=== PATIENT | female | born 1975 | race Caucasian/White ===

== ENCOUNTER 2017-10-16 11:41 | Emergency (ER) | payer OTHER, MEDICAID, SELFPAY ==
[2017-10-16 11:45] VITALS: BP 138/80; PULSE 102; RESP 20; TEMP 36.8; O2SAT 100
[2017-10-16 12:18] LABS: Bacteria Urine None Seen; WBC Urine None Seen (0-5/HPF)
--- NOTE | 2017-10-16 12:20 | ED.FEMALEGU ---
HPI - Female Genitourinary <HINA Mistry - Last Filed: 10/16/17 19:43> General Chief complaint: Vaginal Bleeding Stated complaint: 'PAINFUL PERIOD 11TH DAY OF BLEEDING' Time Seen by Provider: 10/16/17 12:20 History of Present Illness HPI Narrative: 41-year-old female with history of painful menses and chronic pain here for complaint of painful menses that has lasted for the last 11 days. She has pain into her pelvic region described as crampy. She states that she is using a pad approximately every 2-3 hours. She states that she has been treated for painful menses in the past by avionics manager. She denies any relievers or stressors of the pain. Positive p.o. intake. She states her last menstrual period was in the middle of September. She denies any other concerns or complaints. MD Complaint: vaginal bleeding and pelvic pain Related Data Home Medications Medication Instructions Recorded Confirmed lorazepam 1 tab PO QID PRN 10/16/17 10/16/17 quetiapine 100 mg PO BID 10/16/17 10/16/17 sumatriptan succinate [Imitrex] 50 mg PO PRN PRN 10/16/17 10/16/17 venlafaxine 2 cap PO DAILY 10/16/17 10/16/17 Previous Rx's Medication Instructions Recorded amitriptyline 25 mg PO HS #30 tab 02/24/17 Allergies Allergy/AdvReac Type Severity Reaction Status Date / Time No Known Drug Allergies Allergy Verified 10/16/17 11:49 Review of Systems <HINA Mistry - Last Filed: 10/16/17 19:43> Constitutional Denies chills, Denies fever(s), Denies lethargy and Denies weakness Eyes Denies change in vision, Denies eye discharge, Denies irritation and Denies loss of vision ENT Ears, Nose, Mouth, and Throat: Denies change in voice, Denies neck pain and Denies sore throat Cardiovascular Denies chest pain, Denies irregular heart rhythm, Denies lightheadedness, Denies palpitations, Denies dyspnea, Denies dyspnea on exertion and Denies orthopnea Respiratory Denies cough, Denies dyspnea, Denies dyspnea on exertion and Denies wheezing Gastrointestinal Gastrointestinal: Denies abdominal pain, Denies change in bowel habits, Denies diarrhea, Denies nausea and Denies vomiting Genitourinary Reports dysmenorrhea Musculoskeletal Denies neck pain Integumentary/Breasts Denies pruritus, Denies erythema, Denies rash and Denies wounds Neurologic Denies confusion, Denies loss of vision and Denies weakness Psychiatric Denies anxiety, Denies confusion, Denies depression, Denies homicidal ideation and Denies suicidal ideation Endocrine Denies palpitations Allergic/Immunologic Denies wheezing Exam <HINA Mistry - Last Filed: 10/16/17 19:43> Initial Vital Signs Initial Vital Signs: Vital Signs Temperature 98.3 F 10/16/17 11:45 Pulse Rate 102 H 10/16/17 11:45 Respiratory Rate 20 10/16/17 11:45 Blood Pressure 138/80 H 10/16/17 11:45 Pulse Oximetry 100 10/16/17 11:45 Const General: cooperative and well developed Nutritional Appearance: well nourished Orientation: alert, awake, oriented x3 and not confused HENMT Mouth: oral mucosae normal and moist mucous membranes Eyes Conjunctivae: conjunctivae normal Sclera: sclerae normal Pupils: PERRL Resp Effort & Inspection: normal respiratory effort, able to speak in complete sentences, no respiratory distress and no use of accessory muscles Auscultation: clear to auscultation bilaterally, no rales, no rhonchi and no wheezes Cardio Rate: regular rate Rhythm: regular rhythm Heart Sounds: no click, no gallops, no murmurs and no rubs GI Inspection: non-distended Palpation: soft, no hepatosplenomegaly, No guarding, No pulsatile mass and No tender Auscultation: normal bowel sounds General: No CVA tenderness External Female Exam: external appearance normal Skin General: no rashes or lesions noted, No jaundice and No petechiae <Rhiannon Valencia DO - Last Filed: 10/17/17 08:26> Initial Vital Signs Initial Vital Signs: Vital Signs Temperature 98.3 F 10/16/17 11:45 Pulse Rate 102 H 10/16/17 11:45 Respiratory Rate 20 10/16/17 11:45 Blood Pressure 138/80 H 10/16/17 11:45 Pulse Oximetry 100 10/16/17 11:45 Course <HINA Mistry - Last Filed: 10/16/17 19:43> Orders Ordered: Discontinued Medications Hydromorphone HCl (Dilaudid) 0.5 mg IV NOW ONE Stop: 10/16/17 13:05 Last Admin: 10/16/17 13:18 Dose: 0.5 mg Sodium Chloride (Normal Saline 0.9%) 1,000 mls @ 1,000 mls/hr IV BOLUS ONE Stop: 10/16/17 13:34 Last Infusion: 10/16/17 14:32 Dose: 0 mls/hr Admin: 10/16/17 13:18 Dose: 1,000 mls/hr Vital Signs - 8 hr 10/16/17 11:45 10/16/17 13:28 10/16/17 14:00 Temperature 98.3 F Pulse Rate 102 H 94 H 94 H Respiratory Rate 20 20 Blood Pressure 138/80 H Blood Pressure [Left Arm] 135/88 H 130/70 H Pulse Oximetry 100 100 100 <Rhiannon Valencia DO - Last Filed: 10/17/17 08:26> Orders Ordered: Discontinued Medications Hydromorphone HCl (Dilaudid) 0.5 mg IV NOW ONE Stop: 10/16/17 13:05 Last Admin: 10/16/17 13:18 Dose: 0.5 mg Sodium Chloride (Normal Saline 0.9%) 1,000 mls @ 1,000 mls/hr IV BOLUS ONE Stop: 10/16/17 13:34 Last Infusion: 10/16/17 14:32 Dose: 0 mls/hr Admin: 10/16/17 13:18 Dose: 1,000 mls/hr Vital Signs - 8 hr 10/16/17 11:45 10/16/17 13:28 10/16/17 14:00 Temperature 98.3 F Pulse Rate 102 H 94 H 94 H Respiratory Rate 20 20 Blood Pressure 138/80 H Blood Pressure [Left Arm] 135/88 H 130/70 H Pulse Oximetry 100 100 100 MDM - Female Genitourinary <HINA Mistry - Last Filed: 10/16/17 19:43> Lab Data Result diagrams: 10/16/17 12:51 10/16/17 12:51 Lab Results 10/16/17 10/16/17 10/16/17 Range/Units 12:04 12:51 12:51 WBC 6.7 (4.5-11.0) X10^3/uL RBC 3.94 L (4.0-5.2) X10^6/uL Hgb 9.7 L (12.0-16.0) g/dL Hct 29.3 L (36-46) % MCV 74.4 L (80-100) fL MCH 24.6 L (26-34) PG MCHC 33.1 (30-36) % RDW 16.5 H (11.6-14.8) % Plt Count 441 H (150-400) X10^3/uL Neut % (Auto) 60.7 (50-75) % Lymph % (Auto) 29.3 (25-40) % [place] % (Auto) 6.7 (3-14) % Eos % (Auto) 1.9 L (2-4) % Baso % (Auto) 1.4 (0-2) % Neut # (Auto) 4100 (8115-2420) /uL PT 9.9 L (10.1-12.7) SECONDS INR 0.9 (0.9-1.3) Sodium (137-145) mmol/L Potassium (3.4-5.1) mmol/L Chloride (98-107) mmol/L Carbon Dioxide (22-32) mmol/L BUN (7-17) mg/dL Creatinine (0.52-1.04) mg/dL Estimated GFR (>60) mL/min BUN/Creatinine Ratio (6-22) Glucose (70-100) mg/dL Calcium (8.4-10.2) mg/dL Total Bilirubin (0.2-1.3) mg/dL AST (14-36) IU/L ALT (9-52) IU/L Alkaline Phosphatase (38-126) U/L Total Protein (6.3-8.2) g/dL Albumin (3.5-5.0) g/dL Globulin (1.7-4.1) g/dL Albumin/Globulin Ratio (1.0-2.8) Urine RBC 30-100/hpf H (0-5/HPF) Urine WBC None seen (0-5/HPF) Ur Squamous Epith Cells 0-1 /hpf Urine Bacteria None seen (None) Ur Culture Indicated? Cult not indicated Micro UA Comment Not Reportable 10/16/17 Range/Units 12:51 WBC (4.5-11.0) X10^3/uL RBC (4.0-5.2) X10^6/uL Hgb (12.0-16.0) g/dL Hct (36-46) % MCV (80-100) fL MCH (26-34) PG MCHC (30-36) % RDW (11.6-14.8) % Plt Count (150-400) X10^3/uL Neut % (Auto) (50-75) % Lymph % (Auto) (25-40) % [place] % (Auto) (3-14) % Eos % (Auto) (2-4) % Baso % (Auto) (0-2) % Neut # (Auto) (5119-7715) /uL PT (10.1-12.7) SECONDS INR (0.9-1.3) Sodium 141 (137-145) mmol/L Potassium 4.5 (3.4-5.1) mmol/L Chloride 104 (98-107) mmol/L Carbon Dioxide 26 (22-32) mmol/L BUN 13 (7-17) mg/dL Creatinine 0.60 (0.52-1.04) mg/dL Estimated GFR > 60.0 (>60) mL/min BUN/Creatinine Ratio 21.7 (6-22) Glucose 79 (70-100) mg/dL Calcium 8.8 (8.4-10.2) mg/dL Total Bilirubin 0.2 (0.2-1.3) mg/dL AST 18 (14-36) IU/L ALT 25 (9-52) IU/L Alkaline Phosphatase 51 (38-126) U/L Total Protein 6.9 (6.3-8.2) g/dL Albumin 4.0 (3.5-5.0) g/dL Globulin 2.9 (1.7-4.1) g/dL Albumin/Globulin Ratio 1.4 (1.0-2.8) Urine RBC (0-5/HPF) Urine WBC (0-5/HPF) Ur Squamous Epith Cells Urine Bacteria (None) Ur Culture Indicated? Micro UA Comment Imaging Data pelvic US: Radiologist's impression: PROCEDURE: US PELVIC COMPLETE INDICATIONS: PAINFUL PERIOD X 11 DAYS TECHNIQUE: Real-time scanning was performed of the pelvic organs, with image documentation. Additional endovaginal scanning was necessary due to incomplete visualization of the adnexal and endometrial structures by transabdominal scanning. COMPARISON: None. FINDINGS: Transabdominal scanning: Limited scanning through the kidneys shows no hydronephrosis. No pathologic free abdominal or pelvic fluid. Endovaginal scanning: Uterus: Uterus is normal in size at 9.3 x 4.7 x 5.4 cm. The endometrium measures 5.6 mm in combined thickness. Echotexture of the uterus is normal. Ovaries: Right adnexa measures 2.7 x 1.4 x 2.0 cm. Left adnexa measures 2.5 x 1.7 x 1.3 cm. Adnexa are sonographically normal. IMPRESSION: 1. Uterus is sonographically normal. 2. Adnexa are sonographically normal. Dictated by: Jerri Loo MD, PhD on 10/16/2017 at 15:04 Approved by: Jerri Loo MD, PhD on 10/16/2017 at 15:05 [facility] Narrative Medical decision making narrative: CBC panel was obtained and shows anemia however is consistent with her prior lab values. CMP was obtained was unremarkable. PT INR was normal. Proceeded to do a pelvic exam however patient refused due to discomfort. She did desire to have more pain medications and I did not feel comfortable with giving her more. Patient decided to leave ama before ultrasound results. Ultrasound results were later resulted and was unremarkable. She is referred to avionics manager she is to call the number at number provided. For follow-up and further evaluation. <Rhiannon Valencia, DO - Last Filed: 10/17/17 08:26> Lab Data Lab Results 10/16/17 10/16/17 10/16/17 Range/Units 12:04 12:51 12:51 WBC 6.7 (4.5-11.0) X10^3/uL RBC 3.94 L (4.0-5.2) X10^6/uL Hgb 9.7 L (12.0-16.0) g/dL Hct 29.3 L (36-46) % MCV 74.4 L (80-100) fL MCH 24.6 L (26-34) PG MCHC 33.1 (30-36) % RDW 16.5 H (11.6-14.8) % Plt Count 441 H (150-400) X10^3/uL Neut % (Auto) 60.7 (50-75) % Lymph % (Auto) 29.3 (25-40) % [place] % (Auto) 6.7 (3-14) % Eos % (Auto) 1.9 L (2-4) % Baso % (Auto) 1.4 (0-2) % Neut # (Auto) 4100 (0784-1615) /uL PT 9.9 L (10.1-12.7) SECONDS INR 0.9 (0.9-1.3) Sodium (137-145) mmol/L Potassium (3.4-5.1) mmol/L Chloride (98-107) mmol/L Carbon Dioxide (22-32) mmol/L BUN (7-17) mg/dL Creatinine (0.52-1.04) mg/dL Estimated GFR (>60) mL/min BUN/Creatinine Ratio (6-22) Glucose (70-100) mg/dL Calcium (8.4-10.2) mg/dL Total Bilirubin (0.2-1.3) mg/dL AST (14-36) IU/L ALT (9-52) IU/L Alkaline Phosphatase (38-126) U/L Total Protein (6.3-8.2) g/dL Albumin (3.5-5.0) g/dL Globulin (1.7-4.1) g/dL Albumin/Globulin Ratio (1.0-2.8) Urine RBC 30-100/hpf H (0-5/HPF) Urine WBC None seen (0-5/HPF) Ur Squamous Epith Cells 0-1 /hpf Urine Bacteria None seen (None) Ur Culture Indicated? Cult not indicated Micro UA Comment Not Reportable 10/16/17 Range/Units 12:51 WBC (4.5-11.0) X10^3/uL RBC (4.0-5.2) X10^6/uL Hgb (12.0-16.0) g/dL Hct (36-46) % MCV (80-100) fL MCH (26-34) PG MCHC (30-36) % RDW (11.6-14.8) % Plt Count (150-400) X10^3/uL Neut % (Auto) (50-75) % Lymph % (Auto) (25-40) % [place] % (Auto) (3-14) % Eos % (Auto) (2-4) % Baso % (Auto) (0-2) % Neut # (Auto) (5040-3941) /uL PT (10.1-12.7) SECONDS INR (0.9-1.3) Sodium 141 (137-145) mmol/L Potassium 4.5 (3.4-5.1) mmol/L Chloride 104 (98-107) mmol/L Carbon Dioxide 26 (22-32) mmol/L BUN 13 (7-17) mg/dL Creatinine 0.60 (0.52-1.04) mg/dL Estimated GFR > 60.0 (>60) mL/min BUN/Creatinine Ratio 21.7 (6-22) Glucose 79 (70-100) mg/dL Calcium 8.8 (8.4-10.2) mg/dL Total Bilirubin 0.2 (0.2-1.3) mg/dL AST 18 (14-36) IU/L ALT 25 (9-52) IU/L Alkaline Phosphatase 51 (38-126) U/L Total Protein 6.9 (6.3-8.2) g/dL Albumin 4.0 (3.5-5.0) g/dL Globulin 2.9 (1.7-4.1) g/dL Albumin/Globulin Ratio 1.4 (1.0-2.8) Urine RBC (0-5/HPF) Urine WBC (0-5/HPF) Ur Squamous Epith Cells Urine Bacteria (None) Ur Culture Indicated? Micro UA Comment Discharge Plan Departure Patient Disposition: Left Against Medical Advice Clinical Impression: Anemia, Dysmenorrhea Discharge Date/Time: 10/16/17 14:46 Interventions: ED Discharge Assessment Last Done: 10/16/17 14:40 Instructions: DI for Dysmenorrhea Activity Restrictions/Additional Instructions: He referred to avionics manager for further evaluation and treatment call their office at number provided to schedule follow-up appointment. For any worsening symptoms return to the emergency room. Use [id number] Tylenol Motrin as needed for any discomfort. Prescriptions: No Action amitriptyline 25 MG tablet 25 mg PO HS Qty: 30 RF: 5 venlafaxine 150 mg capsule,extended release 24hr 2 cap PO DAILY RF: 0 lorazepam 1 mg tablet 1 tab PO QID PRN (Reason: Anxiety) RF: 0 quetiapine 100 mg tablet 100 mg PO BID RF: 0 sumatriptan succinate [Imitrex] 50 MG tablet 50 mg PO PRN PRN (Reason: Migraine Headache) RF: 0 Referrals: Jose Grace MD [Physician] - Eugenia Jernigan DO [Primary Care Provider] - Stand Alone Forms: Against Medical Advice <Rhiannon Valencia DO - Last Filed: 10/17/17 08:26> Cosign ED Attending [place] Attestation: I was immediately available in the department for consultation. Documentation has been reviewed. I agree with assessment and plan.
--- NOTE | 2017-10-16 12:30 | PC.NURSE ---
PT tells me that she doesnt want me as her nurse as I was mean to her. I do not remember any encounter
--- NOTE | 2017-10-16 12:35 | DI.US.S_ITS ---
PROCEDURE: US PELVIC COMPLETE INDICATIONS: PAINFUL PERIOD X 11 DAYS TECHNIQUE: Real-time scanning was performed of the pelvic organs, with image documentation. Additional endovaginal scanning was necessary due to incomplete visualization of the adnexal and endometrial structures by transabdominal scanning. COMPARISON: None. FINDINGS: Transabdominal scanning: Limited scanning through the kidneys shows no hydronephrosis. No pathologic free abdominal or pelvic fluid. Endovaginal scanning: Uterus: Uterus is normal in size at 9.3 x 4.7 x 5.4 cm. The endometrium measures 5.6 mm in combined thickness. Echotexture of the uterus is normal. Ovaries: Right adnexa measures 2.7 x 1.4 x 2.0 cm. Left adnexa measures 2.5 x 1.7 x 1.3 cm. Adnexa are sonographically normal. IMPRESSION: 1. Uterus is sonographically normal. 2. Adnexa are sonographically normal. Dictated by: Jerri Loo MD, PhD on 10/16/2017 at 15:04 Approved by: Jerri Loo MD, PhD on 10/16/2017 at 15:05
[2017-10-16 12:47] LABS: Culture Indicated Urine Cult Not Indicated; RBC Urine 30-100/HPF (0-5/HPF); Squamous Epithelial Cell Urine 0-1 /HPF
--- NOTE | 2017-10-16 12:47 | PC.NURSE ---
Refused lab draw until meds given. Another RN expl no meds were ordered at this time.
--- NOTE | 2017-10-16 12:56 | PC.NURSE ---
Provider at bedside discussing pain medications options with pt. Refusing studies until then
[2017-10-16 12:58] LABS: Add Manual Diff / Slide Review NO; Basophils Percent Auto 1.4 % (0-2); Eosinophils Percent Auto 1.9 % (2-4); Hematocrit 29.3 % (36-46); Hemoglobin 9.7 g/dL (12.0-16.0); Lymphocytes Percent Auto 29.3 % (25-40); Mean Corpuscular HGB Conc 33.1 % (30-36); Mean Corpuscular Hemoglobin 24.6 PG (26-34); Mean Corpuscular Volume 74.4 fL (80-100); Monocytes Percent Auto 6.7 % (3-14); Neutrophils Absolute Auto 4100 /uL (3000-5900); Neutrophils Percent Auto 60.7 % (50-75); Platelet Count 441 X10^3/uL (150-400); Red Blood Cell Count 3.94 X10^6/uL (4.0-5.2); Red Cell Distribution Width 16.5 % (11.6-14.8); White Blood Cell Count 6.7 X10^3/uL (4.5-11.0)
[2017-10-16 13:04] LABS: INR 0.9 (0.9-1.3); Prothrombin Time 9.9 SECONDS (10.1-12.7)
[2017-10-16 13:08] LABS: Alanine Aminotransferase 25 IU/L (9-52); Albumin Globulin Ratio 1.4 (1.0-2.8); Alkaline Phosphatase 51 U/L (38-126); Aspartate Aminotransferase 18 IU/L (14-36); BUN Creatinine Ratio 21.7 (6-22); Bilirubin Total 0.2 mg/dL (0.2-1.3); Blood Urea Nitrogen 13 mg/dL (7-17); Calcium 8.8 mg/dL (8.4-10.2); Carbon Dioxide 26 mmol/L (22-32); Chloride 104 mmol/L (98-107); Estimated Glomerular Filt Rate > 60.0 mL/min (>60); Globulin 2.9 g/dL (1.7-4.1); Glucose 79 mg/dL (70-100); HEMOLYSIS < 15 (0-50); Potassium 4.5 mmol/L (3.4-5.1); Sodium 141 mmol/L (137-145); Total Protein 6.9 g/dL (6.3-8.2)
[2017-10-16] MEDS: HYDROMORPHONE 0.5 MG INJ IV (13:18)
[2017-10-16] MEDS: SODIUM CHLORIDE 0.9% 1,000 ML 1000 ML IV (13:18)
[2017-10-16 13:28] VITALS: BP 135/88; PULSE 94; RESP 20; O2SAT 100
--- NOTE | 2017-10-16 13:49 | PC.NURSE ---
Addendum entered by Anne Delarosa R.N. 10/16/17 14:38: 1400 Pt put automotive consultant light and reported severe left sided abdominal pain. Requesting more pain medications. Provider aware. No new orders at this time. Original Note: Pt c/o of 8/10 abdominal and low back pain. Provider aware. Gave pt a heating pack for cramping pain.
[2017-10-16 14:00] VITALS: BP 130/70; PULSE 94; O2SAT 100
--- NOTE | 2017-10-16 14:14 | ED_ITS ---
HPI - Female Genitourinary <HINA Mistry - Last Filed: 10/16/17 19:43> General Chief complaint: Vaginal Bleeding Stated complaint: 'PAINFUL PERIOD 11TH DAY OF BLEEDING' Time Seen by Provider: 10/16/17 12:20 History of Present Illness HPI Narrative: 41-year-old female with history of painful menses and chronic pain here for complaint of painful menses that has lasted for the last 11 days. She has pain into her pelvic region described as crampy. She states that she is using a pad approximately every 2-3 hours. She states that she has been treated for painful menses in the past by conciliator. She denies any relievers or stressors of the pain. Positive p.o. intake. She states her last menstrual period was in the middle of September. She denies any other concerns or complaints. MD Complaint: vaginal bleeding and pelvic pain Related Data Home Medications Medication Instructions Recorded Confirmed lorazepam 1 tab PO QID PRN 10/16/17 10/16/17 quetiapine 100 mg PO BID 10/16/17 10/16/17 sumatriptan succinate [Imitrex] 50 mg PO PRN PRN 10/16/17 10/16/17 venlafaxine 2 cap PO DAILY 10/16/17 10/16/17 Previous Rx's Medication Instructions Recorded amitriptyline 25 mg PO HS #30 tab 02/24/17 Allergies Allergy/AdvReac Type Severity Reaction Status Date / Time No Known Drug Allergies Allergy Verified 10/16/17 11:49 Review of Systems <HINA Mistry - Last Filed: 10/16/17 19:43> Constitutional Denies chills, Denies fever(s), Denies lethargy and Denies weakness Eyes Denies change in vision, Denies eye discharge, Denies irritation and Denies loss of vision ENT Ears, Nose, Mouth, and Throat: Denies change in voice, Denies neck pain and Denies sore throat Cardiovascular Denies chest pain, Denies irregular heart rhythm, Denies lightheadedness, Denies palpitations, Denies dyspnea, Denies dyspnea on exertion and Denies orthopnea Respiratory Denies cough, Denies dyspnea, Denies dyspnea on exertion and Denies wheezing Gastrointestinal Gastrointestinal: Denies abdominal pain, Denies change in bowel habits, Denies diarrhea, Denies nausea and Denies vomiting Genitourinary Reports dysmenorrhea Musculoskeletal Denies neck pain Integumentary/Breasts Denies pruritus, Denies erythema, Denies rash and Denies wounds Neurologic Denies confusion, Denies loss of vision and Denies weakness Psychiatric Denies anxiety, Denies confusion, Denies depression, Denies homicidal ideation and Denies suicidal ideation Endocrine Denies palpitations Allergic/Immunologic Denies wheezing Exam <HINA Mistry - Last Filed: 10/16/17 19:43> Initial Vital Signs Initial Vital Signs: Vital Signs Temperature 98.3 F 10/16/17 11:45 Pulse Rate 102 H 10/16/17 11:45 Respiratory Rate 20 10/16/17 11:45 Blood Pressure 138/80 H 10/16/17 11:45 Pulse Oximetry 100 10/16/17 11:45 Const General: cooperative and well developed Nutritional Appearance: well nourished Orientation: alert, awake, oriented x3 and not confused HENMT Mouth: oral mucosae normal and moist mucous membranes Eyes Conjunctivae: conjunctivae normal Sclera: sclerae normal Pupils: PERRL Resp Effort & Inspection: normal respiratory effort, able to speak in complete sentences, no respiratory distress and no use of accessory muscles Auscultation: clear to auscultation bilaterally, no rales, no rhonchi and no wheezes Cardio Rate: regular rate Rhythm: regular rhythm Heart Sounds: no click, no gallops, no murmurs and no rubs GI Inspection: non-distended Palpation: soft, no hepatosplenomegaly, No guarding, No pulsatile mass and No tender Auscultation: normal bowel sounds General: No CVA tenderness External Female Exam: external appearance normal Skin General: no rashes or lesions noted, No jaundice and No petechiae <Rhiannon Valencia DO - Last Filed: 10/17/17 08:26> Initial Vital Signs Initial Vital Signs: Vital Signs Temperature 98.3 F 10/16/17 11:45 Pulse Rate 102 H 10/16/17 11:45 Respiratory Rate 20 10/16/17 11:45 Blood Pressure 138/80 H 10/16/17 11:45 Pulse Oximetry 100 10/16/17 11:45 Course <HINA Mistry - Last Filed: 10/16/17 19:43> Orders Ordered: Discontinued Medications Hydromorphone HCl (Dilaudid) 0.5 mg IV NOW ONE Stop: 10/16/17 13:05 Last Admin: 10/16/17 13:18 Dose: 0.5 mg Sodium Chloride (Normal Saline 0.9%) 1,000 mls @ 1,000 mls/hr IV BOLUS ONE Stop: 10/16/17 13:34 Last Infusion: 10/16/17 14:32 Dose: 0 mls/hr Admin: 10/16/17 13:18 Dose: 1,000 mls/hr Vital Signs - 8 hr 10/16/17 11:45 10/16/17 13:28 10/16/17 14:00 Temperature 98.3 F Pulse Rate 102 H 94 H 94 H Respiratory Rate 20 20 Blood Pressure 138/80 H Blood Pressure [Left Arm] 135/88 H 130/70 H Pulse Oximetry 100 100 100 <Rhiannon Valencia DO - Last Filed: 10/17/17 08:26> Orders Ordered: Discontinued Medications Hydromorphone HCl (Dilaudid) 0.5 mg IV NOW ONE Stop: 10/16/17 13:05 Last Admin: 10/16/17 13:18 Dose: 0.5 mg Sodium Chloride (Normal Saline 0.9%) 1,000 mls @ 1,000 mls/hr IV BOLUS ONE Stop: 10/16/17 13:34 Last Infusion: 10/16/17 14:32 Dose: 0 mls/hr Admin: 10/16/17 13:18 Dose: 1,000 mls/hr Vital Signs - 8 hr 10/16/17 11:45 10/16/17 13:28 10/16/17 14:00 Temperature 98.3 F Pulse Rate 102 H 94 H 94 H Respiratory Rate 20 20 Blood Pressure 138/80 H Blood Pressure [Left Arm] 135/88 H 130/70 H Pulse Oximetry 100 100 100 MDM - Female Genitourinary <HINA Mistry - Last Filed: 10/16/17 19:43> Lab Data Result diagrams: 10/16/17 12:51 10/16/17 12:51 Lab Results 10/16/17 10/16/17 10/16/17 Range/Units 12:04 12:51 12:51 WBC 6.7 (4.5-11.0) X10^3/uL RBC 3.94 L (4.0-5.2) X10^6/uL Hgb 9.7 L (12.0-16.0) g/dL Hct 29.3 L (36-46) % MCV 74.4 L (80-100) fL MCH 24.6 L (26-34) PG MCHC 33.1 (30-36) % RDW 16.5 H (11.6-14.8) % Plt Count 441 H (150-400) X10^3/uL Neut % (Auto) 60.7 (50-75) % Lymph % (Auto) 29.3 (25-40) % Bennett % (Auto) 6.7 (3-14) % Eos % (Auto) 1.9 L (2-4) % Baso % (Auto) 1.4 (0-2) % Neut # (Auto) 4100 (8880-0906) /uL PT 9.9 L (10.1-12.7) SECONDS INR 0.9 (0.9-1.3) Sodium (137-145) mmol/L Potassium (3.4-5.1) mmol/L Chloride (98-107) mmol/L Carbon Dioxide (22-32) mmol/L BUN (7-17) mg/dL Creatinine (0.52-1.04) mg/dL Estimated GFR (>60) mL/min BUN/Creatinine Ratio (6-22) Glucose (70-100) mg/dL Calcium (8.4-10.2) mg/dL Total Bilirubin (0.2-1.3) mg/dL AST (14-36) IU/L ALT (9-52) IU/L Alkaline Phosphatase (38-126) U/L Total Protein (6.3-8.2) g/dL Albumin (3.5-5.0) g/dL Globulin (1.7-4.1) g/dL Albumin/Globulin Ratio (1.0-2.8) Urine RBC 30-100/hpf H (0-5/HPF) Urine WBC None seen (0-5/HPF) Ur Squamous Epith Cells 0-1 /hpf Urine Bacteria None seen (None) Ur Culture Indicated? Cult not indicated Micro UA Comment Not Reportable 10/16/17 Range/Units 12:51 WBC (4.5-11.0) X10^3/uL RBC (4.0-5.2) X10^6/uL Hgb (12.0-16.0) g/dL Hct (36-46) % MCV (80-100) fL MCH (26-34) PG MCHC (30-36) % RDW (11.6-14.8) % Plt Count (150-400) X10^3/uL Neut % (Auto) (50-75) % Lymph % (Auto) (25-40) % Bennett % (Auto) (3-14) % Eos % (Auto) (2-4) % Baso % (Auto) (0-2) % Neut # (Auto) (5192-6810) /uL PT (10.1-12.7) SECONDS INR (0.9-1.3) Sodium 141 (137-145) mmol/L Potassium 4.5 (3.4-5.1) mmol/L Chloride 104 (98-107) mmol/L Carbon Dioxide 26 (22-32) mmol/L BUN 13 (7-17) mg/dL Creatinine 0.60 (0.52-1.04) mg/dL Estimated GFR > 60.0 (>60) mL/min BUN/Creatinine Ratio 21.7 (6-22) Glucose 79 (70-100) mg/dL Calcium 8.8 (8.4-10.2) mg/dL Total Bilirubin 0.2 (0.2-1.3) mg/dL AST 18 (14-36) IU/L ALT 25 (9-52) IU/L Alkaline Phosphatase 51 (38-126) U/L Total Protein 6.9 (6.3-8.2) g/dL Albumin 4.0 (3.5-5.0) g/dL Globulin 2.9 (1.7-4.1) g/dL Albumin/Globulin Ratio 1.4 (1.0-2.8) Urine RBC (0-5/HPF) Urine WBC (0-5/HPF) Ur Squamous Epith Cells Urine Bacteria (None) Ur Culture Indicated? Micro UA Comment Imaging Data pelvic US: Radiologist's impression: PROCEDURE: US PELVIC COMPLETE INDICATIONS: PAINFUL PERIOD X 11 DAYS TECHNIQUE: Real-time scanning was performed of the pelvic organs, with image documentation. Additional endovaginal scanning was necessary due to incomplete visualization of the adnexal and endometrial structures by transabdominal scanning. COMPARISON: None. FINDINGS: Transabdominal scanning: Limited scanning through the kidneys shows no hydronephrosis. No pathologic free abdominal or pelvic fluid. Endovaginal scanning: Uterus: Uterus is normal in size at 9.3 x 4.7 x 5.4 cm. The endometrium measures 5.6 mm in combined thickness. Echotexture of the uterus is normal. Ovaries: Right adnexa measures 2.7 x 1.4 x 2.0 cm. Left adnexa measures 2.5 x 1.7 x 1.3 cm. Adnexa are sonographically normal. IMPRESSION: 1. Uterus is sonographically normal. 2. Adnexa are sonographically normal. Dictated by: Jerri Loo MD, PhD on 10/16/2017 at 15:04 Approved by: Jerri Loo MD, PhD on 10/16/2017 at 15:05 [facility] Narrative Medical decision making narrative: CBC panel was obtained and shows anemia however is consistent with her prior lab values. CMP was obtained was unremarkable. PT INR was normal. Proceeded to do a pelvic exam however patient refused due to discomfort. She did desire to have more pain medications and I did not feel comfortable with giving her more. Patient decided to leave ama before ultrasound results. Ultrasound results were later resulted and was unremarkable. She is referred to conciliator she is to call the number at number provided. For follow-up and further evaluation. <Rhiannon Valencia, DO - Last Filed: 10/17/17 08:26> Lab Data Lab Results 10/16/17 10/16/17 10/16/17 Range/Units 12:04 12:51 12:51 WBC 6.7 (4.5-11.0) X10^3/uL RBC 3.94 L (4.0-5.2) X10^6/uL Hgb 9.7 L (12.0-16.0) g/dL Hct 29.3 L (36-46) % MCV 74.4 L (80-100) fL MCH 24.6 L (26-34) PG MCHC 33.1 (30-36) % RDW 16.5 H (11.6-14.8) % Plt Count 441 H (150-400) X10^3/uL Neut % (Auto) 60.7 (50-75) % Lymph % (Auto) 29.3 (25-40) % Bennett % (Auto) 6.7 (3-14) % Eos % (Auto) 1.9 L (2-4) % Baso % (Auto) 1.4 (0-2) % Neut # (Auto) 4100 (7869-3556) /uL PT 9.9 L (10.1-12.7) SECONDS INR 0.9 (0.9-1.3) Sodium (137-145) mmol/L Potassium (3.4-5.1) mmol/L Chloride (98-107) mmol/L Carbon Dioxide (22-32) mmol/L BUN (7-17) mg/dL Creatinine (0.52-1.04) mg/dL Estimated GFR (>60) mL/min BUN/Creatinine Ratio (6-22) Glucose (70-100) mg/dL Calcium (8.4-10.2) mg/dL Total Bilirubin (0.2-1.3) mg/dL AST (14-36) IU/L ALT (9-52) IU/L Alkaline Phosphatase (38-126) U/L Total Protein (6.3-8.2) g/dL Albumin (3.5-5.0) g/dL Globulin (1.7-4.1) g/dL Albumin/Globulin Ratio (1.0-2.8) Urine RBC 30-100/hpf H (0-5/HPF) Urine WBC None seen (0-5/HPF) Ur Squamous Epith Cells 0-1 /hpf Urine Bacteria None seen (None) Ur Culture Indicated? Cult not indicated Micro UA Comment Not Reportable 10/16/17 Range/Units 12:51 WBC (4.5-11.0) X10^3/uL RBC (4.0-5.2) X10^6/uL Hgb (12.0-16.0) g/dL Hct (36-46) % MCV (80-100) fL MCH (26-34) PG MCHC (30-36) % RDW (11.6-14.8) % Plt Count (150-400) X10^3/uL Neut % (Auto) (50-75) % Lymph % (Auto) (25-40) % Bennett % (Auto) (3-14) % Eos % (Auto) (2-4) % Baso % (Auto) (0-2) % Neut # (Auto) (1811-3190) /uL PT (10.1-12.7) SECONDS INR (0.9-1.3) Sodium 141 (137-145) mmol/L Potassium 4.5 (3.4-5.1) mmol/L Chloride 104 (98-107) mmol/L Carbon Dioxide 26 (22-32) mmol/L BUN 13 (7-17) mg/dL Creatinine 0.60 (0.52-1.04) mg/dL Estimated GFR > 60.0 (>60) mL/min BUN/Creatinine Ratio 21.7 (6-22) Glucose 79 (70-100) mg/dL Calcium 8.8 (8.4-10.2) mg/dL Total Bilirubin 0.2 (0.2-1.3) mg/dL AST 18 (14-36) IU/L ALT 25 (9-52) IU/L Alkaline Phosphatase 51 (38-126) U/L Total Protein 6.9 (6.3-8.2) g/dL Albumin 4.0 (3.5-5.0) g/dL Globulin 2.9 (1.7-4.1) g/dL Albumin/Globulin Ratio 1.4 (1.0-2.8) Urine RBC (0-5/HPF) Urine WBC (0-5/HPF) Ur Squamous Epith Cells Urine Bacteria (None) Ur Culture Indicated? Micro UA Comment Discharge Plan Departure Patient Disposition: Left Against Medical Advice Clinical Impression: Anemia, Dysmenorrhea Discharge Date/Time: 10/16/17 14:46 Interventions: ED Discharge Assessment Last Done: 10/16/17 14:40 Instructions: DI for Dysmenorrhea Activity Restrictions/Additional Instructions: He referred to conciliator for further evaluation and treatment call their office at number provided to schedule follow-up appointment. For any worsening symptoms return to the emergency room. Use [id number] Tylenol Motrin as needed for any discomfort. Prescriptions: No Action amitriptyline 25 MG tablet 25 mg PO HS Qty: 30 RF: 5 venlafaxine 150 mg capsule,extended release 24hr 2 cap PO DAILY RF: 0 lorazepam 1 mg tablet 1 tab PO QID PRN (Reason: Anxiety) RF: 0 quetiapine 100 mg tablet 100 mg PO BID RF: 0 sumatriptan succinate [Imitrex] 50 MG tablet 50 mg PO PRN PRN (Reason: Migraine Headache) RF: 0 Referrals: Jose Grace MD [Physician] - Eugenia Jernigan DO [Primary Care Provider] - Stand Alone Forms: Against Medical Advice <Rhiannon Valencia DO - Last Filed: 10/17/17 08:26> Cosign ED Attending [place] Attestation: I was immediately available in the department for consultation. Documentation has been reviewed. I agree with assessment and plan.
== END 2017-10-16 14:46 | disposition left against medical advice (07) ==
PROVIDERS: Emergency Provider Nurse Practitioner Family; Family Provider Family Medicine; PCP Family Medicine
DX: D64.9 Anemia, unspecified (principal); N94.6 Dysmenorrhea, unspecified
CPT/HCPCS: 36415; 76830; 76856; 80053; 81003; 81015; 81025; 85025; 85610; 96361; 96374; 99283; J1170

== ENCOUNTER → 2019-04-29 12:40 | Outpatient (CLI) | payer OTHER, MEDICAID, SELFPAY ==
--- NOTE | 2019-04-29 | DI.MRI.S_ITS ---
PROCEDURE: MR HEAD/BRAIN WO/W CON INDICATIONS: FACIAL NUMBNESS, ARM NUMBNESS TECHNIQUE: Noncontrast axial T1 spin echo, axial T2 fast spin echo, sagittal and axial FLAIR, coronal T2 fast spin echo, axial gradient echo, axial diffusion and ADC through the brain. After the administration of contrast, axial and coronal 3D VIBE or T1 spin echo with fat saturation through the brain. COMPARISON: None. FINDINGS: Image quality: Excellent. CSF Spaces: Basal cisterns are patent. No extra-axial fluid collections. Ventricles are normal in size and shape. Brain: No midline shift. No intracranial bleeds or masses. No abnormal intracranial enhancement. The brainstem appears normal. Diffusion-weighted images demonstrate no acute ischemic insults. No chronic ischemic insults. Normal intravascular flow voids are present. Skull and face: Calvarial marrow is normal in signal. Orbits appear normal. Sinuses: Sinuses and mastoids appear clear. IMPRESSION: 1. Negative evaluation of the brain. 2. No explanation for face and arm numbness. 3. No acute process. No recent infarct. Dictated by: Isi Blue M.D. on 04/29/2019 at 14:46 Approved by: Isi Blue M.D. on 04/29/2019 at 14:48
--- NOTE | 2019-04-29 | DI.MRI.S_ITS ---
PROCEDURE: MR BRACHIAL PLEXUS WWO CON INDICATIONS: FACIAL NUMBNESS, ARM NUMBNESS TECHNIQUE: Noncontrast axial, coronal, and sagittal T1 spin echo and STIR through the affected brachial plexus region. Additional axial T1 spin echo and coronal T2 fast spin echo acquired through both brachial plexuses with a large [id number]. Optional contrast may be given, followed by axial, coronal, and sagittal T1 spin echo with fat saturation through the affected side. COMPARISON: None. FINDINGS: Image quality: Excellent. Brachial plexus: The C5-T1 origins of the brachial plexus appear normal, without pseudomeningoceles to suggest nerve root avulsion. Within the scalene triangle, costoclavicular space, and pectoralis minor space, the visualized trunks and/or cords of the brachial plexus demonstrate normal morphology and signal. There is a 3 mm diameter high T2 intensity focus within the lower cervical cord which is incompletely visualized. Soft tissues: No supraclavicular adenopathy by size criteria. Superior pleural surfaces are normal in thickness. Jugular veins and carotid arteries appear normal in size. Bones: Marrow demonstrates normal overall signal. IMPRESSION: 1. 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 This could be further assessed using cervical spine MRI with and without intravenous contrast, if clinically indicated. 2. Negative evaluation of the brachial plexus. Dictated by: Isi Blue M.D. on 04/29/2019 at 14:52 Approved by: Isi Blue M.D. on 04/29/2019 at 14:55
== END ==
PROVIDERS: PCP Physician Assistant Medical; Visit Provider Psychiatry & Neurology Neurology
DX: R20.0 Anesthesia of skin (principal)
CPT/HCPCS: 70553; 71552

== ENCOUNTER → 2019-06-21 16:07 | Outpatient (CLI) | payer OTHER, MEDICAID, SELFPAY ==
--- NOTE | 2019-06-21 | DI.MRI.S_ITS ---
PROCEDURE: MR SHOULDER LT WO/W CON INDICATIONS: Pain in left shoulder and scapula TECHNIQUE: Noncontrast oblique coronal T1 spin echo and T2 fast spin echo with fat saturation, oblique sagittal T1 spin echo and T2 fast spin echo with fat saturation, axial T1 spin echo and T2 fast spin echo with fat saturation through the shoulder. Post-contrast oblique coronal, oblique sagittal, and axial T1 spin echo with fat saturation through the shoulder. COMPARISON: None. FINDINGS: Image quality: Motion degraded examination. Rotator cuff: Suboptimal evaluation of the rotator cuff as the field of view is expanded to include entire scapula per clinician's request however mild supraspinatus and infraspinatus tendinopathy is seen with no discrete tear. There is low-grade bursal surface fraying of the supraspinatus and infraspinatus tendons. The teres minor appears intact the subscapularis tendon appears intact. No atrophy of the rotator cuff muscles Bones and bursae: No bone marrow contusions or fractures. Mild acromioclavicular joint degeneration. There is also glenohumeral degenerative joint disease. Acromion demonstrates conventional anatomy, without an os acromiale. No subacromial-subdeltoid bursitis. Capsule and soft tissues: Labrum not well evaluated due to expanded field of view. There is ill-defined tear of the superior segment of the labrum image 11/19, and the appearance suggests bucket handle configuration. Remainder of the labrum appears grossly intact although suboptimally evaluated due to motion artifact Long head of the biceps tendon intact. The rotator interval appears normal, without fibrosis. Coracohumeral ligament intact. No definite geographic muscle signal abnormality to suggest denervation. No atrophy or fatty infiltration of the rotator cuff muscles. The scapula appears grossly unremarkable in marrow signal intensity. The region of the suprascapular nerve, including the suprascapular notch appears unremarkable. No suspicious enhancement in these areas. The spinoglenoid notch region appears unremarkable. No lymphadenopathy IMPRESSION: Unremarkable appearance of the scapula. No specific signal abnormality or abnormal enhancement in the region of the suprascapular nerve. No muscle atrophy to suggest denervation identified Motion degraded examination Mild supraspinatus and infraspinatus tendinopathy with low-grade bursal surface fraying Superior labral tear, potentially with bucket handle appearance although evaluation limited by motion artifact, and expanded field of view as detailed above. Dedicated MR arthrography could be considered as clinically necessary Dictated by: Nicholas Boland M.D. on 06/22/2019 at 8:50 Approved by: Nicholas Boland M.D. on 06/22/2019 at 9:36
== END ==
PROVIDERS: PCP Physician Assistant Medical; Referring Provider Psychiatry & Neurology Neurology; Visit Provider Psychiatry & Neurology Neurology
DX: M25.512 Pain in left shoulder (principal)
CPT/HCPCS: 73223; A9579

== ENCOUNTER → 2020-04-17 17:27 | Outpatient (CLI) | payer OTHER, MEDICAID, SELFPAY ==
--- NOTE | 2020-04-17 17:29 | DI.MRI.S_ITS ---
PROCEDURE: MR LUMBAR SPINE WO/W CON INDICATIONS: Unspecified urinary incontinence,Full incontinence TECHNIQUE: Noncontrast sagittal T1 spin echo and T2 fast spin echo, sagittal STIR, axial T1 and T2 fast spin echo through the lumbar spine. In cases with scoliosis, additional coronal T2 fast spin echo may be performed. After the administration of contrast, sagittal and axial T1 spin echo with fat saturation through the lumbar spine. COMPARISON: [facility], CT, PE STUDY (CTA CHEST), 12/31/2016, 9:30. FINDINGS: Image quality: Excellent. Alignment and curvature: There is normal bony alignment except at L5-S1 where grade 2 anterolisthesis is associated with severe degenerative disc disease and [id number] articulation, with facet osteoarthritis prominent also at L5-S1 and incomplete visualization of the pars interarticularis of L5 bilaterally to the degree that pars defects may be present. Marrow: Marrow is of normal overall signal. No acute vertebral body compression fractures. No suspicious marrow enhancement. Spinal cord: Conus medullaris terminates at the L1 level. Visualized spinal cord demonstrates normal signal, without suspicious enhancement. Paraspinous soft tissues: No infiltrative appearing paravertebral masses or abnormal enhancement is found but there is a rounded fluid rich structure centered just to the right of midline which appears relatively sharply demarcated, best seen on series 3, image 14 in axial projection and impinging on the anterior border of the IVC at that site. By position this appears associated with the pancreatic head/uncinate process. It is relatively poorly seen on the postcontrast imaging sagittal and axial projections, and warrants additional evaluation. The craniocaudad extent is between 3.5 and 3.8 cm. T11-T12 and T12-L1 show mild degenerative disc disease with disc height reduction and slight posterior disc bulging without significant spinal or foraminal stenosis. L1-L2: Normal appearance. L2-L3: Normal appearance. L3-L4: Normal appearance. L4-L5: Mild degenerative disc height reduction and desiccation, mild foraminal stenosis without definite nerve root impingement. Mild facet osteoarthritis and secondary mild left greater than right foraminal stenosis. L5-S1: At the L5-S1 level there is severe degenerative disc disease and facet osteoarthritic change, with hyperostosis at the facet joints producing a moderately severe degree of foraminal stenosis, symmetric bilaterally, and there also is anterolisthesis grade 2 of L5 on S1 producing further foraminal stenosis, likely significantly impinging on the L5 nerve roots. IMPRESSION: 1. The low thoracic cord and conus medullaris, and cauda equina, show no evidence of significant impingement or intrinsic lesion. 2. Degenerative disc disease is mild at the low thoracic spine and thoracolumbar junction and at the L4-5 level. Minimal spinal stenosis and mild foraminal stenosis is associated as discussed above. 3. There is grade 2 anterolisthesis of L5 on S1 with nfxjncgm-uh-vmywhuoc articulation, and also facet hyperostosis or reactive sclerosis related to pars interarticularis defects bilaterally at that level. No significant impingement on nerve roots within the spinal canal is present but there is symmetric moderately severe to severe foraminal stenosis impinging on the L5 nerve roots bilaterally, significantly. 4. An ovoid structure is present impinging on the anterior right border of the inferior vena cava at the pancreatic head/uncinate process area. This is incompletely evaluated by current MR scanning and pancreatic protocol high-resolution thin-section CT scanning without and with contrast is recommended to further assess this abnormality. No prior available imaging is found which evaluates this area. Dictated by: Jim Cavazos M.D. on 04/18/2020 at 11:12 Approved by: Jim Cavazos M.D. on 04/18/2020 at 11:29
== END ==
PROVIDERS: PCP Physician Assistant Medical; Referring Provider Psychiatry & Neurology Neurology; Visit Provider Psychiatry & Neurology Neurology
DX: R32 Unspecified urinary incontinence (principal); R15.9 Full incontinence of feces; M51.34 Other intervertebral disc degeneration, thoracic region; M51.35 Other intervertebral disc degeneration, thoracolumbar region; M51.37 Other intervertebral disc degeneration, lumbosacral region; M47.817 Spondylosis without myelopathy or radiculopathy, lumbosacral region; M43.17 Spondylolisthesis, lumbosacral region
CPT/HCPCS: 72158